=== PATIENT | female | born 1985 | race Caucasian/White ===

== ENCOUNTER 2020-07-06 03:30 | Inpatient (IN) | payer OTHER ==
[2020-07-06 04:30] LABS: BASO % 0.2 % (0-2.0); EOS % 0.4 % (0-4.5); HEMOGLOBIN 12.3 GM/dL (10.7-15.3); LYMPH % 12.6 % (8-40); MCH 30.7 pg (25.7-33.7); MCHC 34.2 g/dl (32.0-36.0); MEAN CELL VOLUME 89.9 fl (80-96); MONO % 6.6 % (3.8-10.2); NEUT % 80.2 % (42.8-82.8); PLATELET COUNT 246 K/MM3 (134-434); RDW 14.4 % (11.6-15.6); WHITE BLOOD COUNT 15.5 K/mm3 (4.0-10.0)
[2020-07-06 04:46] LABS: INR 0.87 (0.83-1.09); PROTHROMBIN TIME (PATIENT) 10.7 SEC (9.7-13.0)
[2020-07-06 04:48] LABS: ACTIVATED PTT 27.9 SECONDS (25.2-36.5); POTASSIUM 4.1 mmol/L (3.5-5.1)
[2020-07-06 04:50] LABS: BLOOD UREA NITROGEN 12.9 mg/dL (7-18)
[2020-07-06] MEDS ORDERED: AMPICILLIN SODIUM 2 GM VIAL ONE (04:50)
[2020-07-06] MEDS ORDERED: AMPICILLIN - 2 GM in SODIUM CHLORIDE 100 ML IVPB ONE ×2 (04:52→05:20)
[2020-07-06 04:53] LABS: CREATININE 0.5 mg/dL (0.55-1.3)
[2020-07-06] MEDS ORDERED: PROMETHAZINE HCL 25 MG/1 ML VIAL IVPUSH ONE (04:53)
[2020-07-06 05:04] VITALS: BMI 40.7
[2020-07-06] MEDS: DEXTROSE 5%-LACTATED RINGERS 1,000 ML IV SCH (05:10)
[2020-07-06 06:26] LABS: HIV INTERPRETATION NEGATIVE (NEGATIVE)
[2020-07-06] MEDS ORDERED: DINOPROSTONE 10 MG VAGINAL SUPPOSITORY VG ONE (07:30)
[2020-07-06] MEDS ORDERED: AMPICILLIN - 1 GM in SODIUM CHLORIDE 100 ML IVPB SCH (08:52)
[2020-07-06] MEDS: AMPICILLIN - 1 GM in SODIUM CHLORIDE 100 ML IVPB SCH ×4 (09:10→21:00)
[2020-07-06] MEDS ORDERED: AMPICILLIN SODIUM 1 GM VIAL ONE ×4 (09:24→20:43)
[2020-07-06] MEDS ORDERED: BUTORPHANOL TARTRATE 1 MG/ML VIAL IVPB ONE (11:00)
[2020-07-06] MEDS ORDERED: OXYTOCIN 30 UNITS in 0.9% NS 30 UNIT/500 ML INFUS.BAG IVPB SCH (15:00)
[2020-07-06] MEDS ORDERED: OXYTOCIN 30 UNITS in 0.9% NS 30 UNIT/500 ML INFUS.BAG IVPB ONE (15:03)
[2020-07-06] MEDS ORDERED: BUPIVACAINE HCL/PF 0.25% (2.5MG/ML) 10 ML VIAL ONE (22:14)
[2020-07-06] MEDS ORDERED: ELECTROLYTE-148 SOLN 1,000 ML IV ONE ×2 (22:30→23:30)
[2020-07-06] MEDS ORDERED: FENTANYL/BUPIVACAINE/NS/PF - PCEA - 50 ML DISP.SYRIN EP ONE (22:51)
[2020-07-06] MEDS ORDERED: PCA PUMP NR ONE (22:51)
[2020-07-07] MEDS ORDERED: NALOXONE HCL 0.4 MG/ML VIAL IVPUSH PRN (00:51)
[2020-07-07] MEDS: AMPICILLIN - 1 GM in SODIUM CHLORIDE 100 ML IVPB SCH ×2 (01:00→20:11)
[2020-07-07] MEDS ORDERED: FENTANYL/BUPIVACAINE/NS/PF - PCEA - 50 ML DISP.SYRIN EP SCH (01:00)
[2020-07-07] MEDS ORDERED: AMPICILLIN SODIUM 1 GM VIAL ONE (01:06)
[2020-07-07] MEDS ORDERED: FENTANYL/BUPIVACAINE/NS/PF - PCEA - 50 ML DISP.SYRIN EP ONE (02:43)
[2020-07-07] MEDS ORDERED: LIDO 2%/EPI 1:200000 PRESRVFRE (20 ML SDVIAL) ONE (03:54)
[2020-07-07] MEDS ORDERED: ceFAZolin SODIUM 1 GM VIAL ONE (03:56)
[2020-07-07] MEDS ORDERED: morphine SULFATE/PF 0.5 MG/ML (2cc Syringe - QUVA) ONE ×2 (03:56)
[2020-07-07] MEDS ORDERED: ONDANSETRON 4 MG/2 ML VIAL ONE (03:56)
[2020-07-07] MEDS ORDERED: OXYTOCIN 10 UNITS/ML VIAL ONE (04:07)
[2020-07-07] MEDS: DEXTROSE 5%-LACTATED RINGERS 1,000 ML IV SCH (05:00)
[2020-07-07] MEDS ORDERED: OXYTOCIN 20 UNITS in 0.9% NS 20 UNIT/1,000 ML INFUS.BAG IV ONE (05:23)
[2020-07-07] MEDS ORDERED: SENNOSIDES/DOCUSATE COMBO (SENNA PLUS) TABLET (UD) PO PRN (05:32)
[2020-07-07] MEDS ORDERED: METHYLERGONOVINE MALEATE 0.2 MG/1 ML AMP IM PRN (05:32)
[2020-07-07] MEDS ORDERED: oxyCODONE HCL 5 MG TABLET PO PRN ×2 (05:32)
[2020-07-07] MEDS ORDERED: OXYTOCIN 20 UNITS in 0.9% NS 20 UNIT/1,000 ML INFUS.BAG IV SCH (05:45)
[2020-07-07] MEDS: IBUPROFEN 800 MG/8 ML IJ IVPB PRN ×2 (07:20→07:31)
[2020-07-07] MEDS ORDERED: ONDANSETRON 4 MG/2 ML VIAL IVPUSH PRN (10:32)
[2020-07-07] MEDS: PRENATAL VITAMINS W/ FOLIC ACID TABLET (FP) PO SCH (11:28)
[2020-07-07] MEDS: ACETAMINOPHEN 325 MG TABLET (FP) PO PRN (19:00)
[2020-07-07] MEDS: SIMETHICONE 80 MG TAB.CHEW (FP) PO PRN (19:01)
[2020-07-07] MEDS: IBUPROFEN 600 MG TABLET (FP) PO PRN (19:01)
[2020-07-07] MEDS ORDERED: diphenhydrAMINE HCL 25 MG CAPSULE (FP) PO PRN (22:17)
[2020-07-08] MEDS ORDERED: BISACODYL 10 MG SUPP.RECT RC PRN (05:32)
[2020-07-08] MEDS: IBUPROFEN 600 MG TABLET (FP) PO PRN (09:45)
[2020-07-08] MEDS: ACETAMINOPHEN 325 MG TABLET (FP) PO PRN (09:45)
[2020-07-08] MEDS: PRENATAL VITAMINS W/ FOLIC ACID TABLET (FP) PO SCH (09:48)
[2020-07-08] MEDS: SIMETHICONE 80 MG TAB.CHEW (FP) PO PRN (09:50)
[2020-07-08] MEDS ORDERED: DIPHTH,PERTUSS(ACELL),TET 0.5 ML DISP.SYRIN IM ONE (10:00)
[2020-07-08 10:18] LABS: BASO % 0.2 % (0-2.0); EOS % 0.9 % (0-4.5); HEMATOCRIT 35.9 % (32.4-45.2); HEMOGLOBIN 12.2 GM/dL (10.7-15.3); LYMPH % 7.5 % (8-40); MCH 30.7 pg (25.7-33.7); MEAN CELL VOLUME 90.5 fl (80-96); MEAN PLT VOLUME 8.7 fl (7.5-11.1); MONO % 5.7 % (3.8-10.2); NEUT % 85.7 % (42.8-82.8); PLATELET COUNT 245 K/MM3 (134-434); RBC 3.97 M/mm3 (3.60-5.2); RDW 14.9 % (11.6-15.6); WHITE BLOOD COUNT 12.7 K/mm3 (4.0-10.0)
[2020-07-09] MEDS: PRENATAL VITAMINS W/ FOLIC ACID TABLET (FP) PO SCH (10:16)
[2020-07-09] MEDS ORDERED: HYDROCORTISONE 1% TOPICAL CREAM 30 GM TUBE TP PRN (20:04)
[2020-07-09] MEDS: SIMETHICONE 80 MG TAB.CHEW (FP) PO PRN (21:37)
[2020-07-09] MEDS: IBUPROFEN 600 MG TABLET (FP) PO PRN (21:37)
[2020-07-09] MEDS: ACETAMINOPHEN 325 MG TABLET (FP) PO PRN (21:38)
[2020-07-09] MEDS ORDERED: HYDROCORTISONE 2.5% TOPICAL CREAM 30 GM TUBE TP SCH (22:00)
[2020-07-10] MEDS: SIMETHICONE 80 MG TAB.CHEW (FP) PO PRN (05:06)
[2020-07-10] MEDS: IBUPROFEN 600 MG TABLET (FP) PO PRN (05:06)
[2020-07-10] MEDS: ACETAMINOPHEN 325 MG TABLET (FP) PO PRN (05:12)
[2020-07-10] MEDS: PRENATAL VITAMINS W/ FOLIC ACID TABLET (FP) PO SCH (10:51)
[2020-07-10 13:12] VITALS: BP 138/77; PULSE 88; TEMP 98.6
== END 2020-07-10 14:49 | disposition home or self-care (01) | DRG 540 ==
LOC: JLDR 03:30 → J3W 07-07 08:00
PROVIDERS: ADMIT Obstetrics & Gynecology; ATTEND Obstetrics & Gynecology
PROC: 3E0P7VZ Introduction of Hormone into Female Reproductive, Via Natural or Artificial Opening (ICD-10-PCS; 2020-07-06)
PROC: 3E033VJ Introduction of Other Hormone into Peripheral Vein, Percutaneous Approach (ICD-10-PCS; 2020-07-06)
PROC: 10D00Z1 Extraction of Products of Conception, Low, Open Approach (ICD-10-PCS; principal; 2020-07-07)
DX: O42.013 Preterm premature rupture of membranes, onset of labor within 24 hours of rupture, third trimester (principal); O62.0 Primary inadequate contractions; O69.81X0 Labor and delivery complicated by cord around neck, without compression, not applicable or unspecified; O69.89X0 Labor and delivery complicated by other cord complications, not applicable or unspecified; O99.824 Streptococcus B carrier state complicating childbirth; Z3A.36 36 weeks gestation of pregnancy; Z37.0 Single live birth
CPT/HCPCS: 36415; 80048; 85025; 85610; 85730; 86780; 86850; 86900; 86901; 87389; 88307-TC; 90715; C9803; U0003